=== PATIENT | male | born 1960 | race Native Hawaiian/Other Pacific Islander ===

== ENCOUNTER 2017-05-16 00:47 | Emergency (ER) | payer OTHER ==
[~2017-05-16] VITALS: Ht 190.5 cm; Wt 84.0 kg
[~2017-05-16 00:47] MED LIST: COUM10TA PO
[2017-05-16 00:53] VITALS: BP 153/97; PULSE 76; RESP 12; TEMP 98.1; O2SAT 100
[2017-05-16 01:07] VITALS: BP 150/81; PULSE 70; RESP 12; TEMP 98.1; O2SAT 96
[2017-05-16] MEDS ORDERED: COUM5TAB PO (01:35)
[2017-05-16] MEDS ORDERED: CEPH-460 PO (01:41)
--- NOTE | 2017-05-16 01:41 | PD ---
HPI Chief Complaint: Skin Problem Time Seen by Provider: 01:16 Travel History International Travel<30 days: No Contact w/Intl Traveler<30days: No Traveled to known affect area: No History of Present Illness HPI Patient is a 57-year-old male with a history of open heart surgery, smoking presents emergency department for evaluation of right foot swelling and redness. Patient states is happened every time he gets bitten by fleas and he thinks he has an allergy to fleas. States they had a cat and got rid of him because of this reason. He states still exposed to fleas at work because his 2 dogs at work. Patient denies a history of diabetes HIV or other immune compromise. Denies any fever. States the redness been present for the past 2 days, gradually worsening, some mild swelling as well, no associated fever or abdominal pain nausea vomiting or red streaks up the legs, context as above. PFSH Past Medical History Cardiovascular Problems: Yes Dialysis: No Diminished Hearing: No Immunizations Current: No Tetanus Vaccination: < 5 Years Influenza Vaccination: No Past Surgical History Cardiac Surgery: Yes (MITRAL VALVE REPLACEMENT) Social History Alcohol Use: No Tobacco Use: Yes (1 ppd) Substance Use: No Allergies-Medications (Allergen,Severity, Reaction): Coded Allergies: No Known Allergies (Verified Adverse Reaction, Unknown, 05/16/17) Reported Meds & Prescriptions Reported Meds & Active Scripts Active Keflex (Cephalexin) 500 Mg Cap 500 Mg PO Q6H 7 Days Reported Coumadin (Warfarin) 5 Mg Tab 5 Mg PO DAILY Review of Systems Except as stated in HPI: all other systems reviewed are Neg Physical Exam Narrative GENERAL: Well-nourished, well-developed patient. Quite pleasant male in no obvious distress per SKIN: Focused skin assessment warm/dry. There is a small area of erythema on the dorsum of the patient's right foot. Minimal amount of associated swelling but no discrete abscess felt. No lymphadenitis lymphangina. Seems to be isolated to the dorsum of the right foot. HEAD: Normocephalic. Atraumatic EYES: No scleral icterus. No injection or drainage. NECK: Supple, trachea midline. No JVD or lymphadenopathy. CARDIOVASCULAR: Regular rate and rhythm without murmurs, gallops, or rubs. RESPIRATORY: Breath sounds equal bilaterally. No accessory muscle use. GASTROINTESTINAL: Abdomen soft, non-tender, nondistended. MUSCULOSKELETAL: No cyanosis, or minimal swelling as above. No bony tenderness of the ankle or foot. BACK: Nontender without obvious deformity. No CVA tenderness. Data Data Last Documented VS Vital Signs Date Time Temp Pulse Resp B/P (MAP) Pulse Ox O2 Delivery O2 Flow Rate FiO2 05/16/17 01:54 05/16/17 01:07 98.1 70 12 96 Orders Orders Ed Discharge Order (05/16/17 01:42) MDM Medical Decision Making Medical Screen Exam Complete: Yes Emergency Medical Condition: Yes Differential Diagnosis cellulitis, abscess, sepsis is excluded clinically. Narrative Course Patient roomed in emergency department, appears to be small cellulitis of the dorsum of the right foot probably 5 x 5 cm. No associated abscess, otherwise appears well, counseled on smoking cessation, return to ED criteria, symptomatic management, follow-up her primary care physician. Discussed management of fleas in the household and doesn't think that he has any fleas currently. Diagnosis Primary Impression: Cellulitis Qualified Codes: L03.115 - Cellulitis of right lower limb Med/Other Pt SpecificInfo: Prescription(s) given Scripts Cephalexin (Keflex) 500 Mg Cap 500 MG PO Q6H for Infection for 7 Days, #28 CAP 0 Refills Prov: Elias Guzman MD 05/16/17 Disposition: 01 DISCHARGE HOME Condition: Stable Elias Guzman MD May 16, 2017 01:41
== END 2017-05-16 01:55 | disposition home or self-care (01) ==
LOC: PHED 00:47
DX: L03.115 Cellulitis of right lower limb (principal); F17.200 Nicotine dependence, unspecified, uncomplicated
CPT/HCPCS: 99283